=== PATIENT | female | born 1960 | race Caucasian/White ===

== ENCOUNTER 2016-04-14 10:34 | Day surgery (SDC) | payer OTHER ==
[2016-04-10 13:54] VITALS: BMI 16.6
[2016-04-14] MEDS ORDERED: MIDAZOLAM HCL 2 MG/2 ML SINGLE DOSE VIAL ONE (12:28)
[2016-04-14] MEDS ORDERED: ONDANSETRON 4 MG/2 ML VIAL IVPUSH PRN (12:32)
[2016-04-14] MEDS ORDERED: LACTATED RINGERS SOLUTION 1,000 ML IV SCH (12:45)
[2016-04-14] MEDS ORDERED: PROPOFOL 20 ML ONE (12:49)
[2016-04-14] MEDS ORDERED: SUCCINYLCHOLINE CHLORIDE 200 MG/10 ML VIAL ONE (12:49)
[2016-04-14] MEDS ORDERED: ROCURONIUM BROMIDE 50 MG/5 ML VIAL ONE (12:50)
--- NOTE | 2016-04-14 13:25 | PROC ---
Procedure Note Procedure: BRONCHOSCOPY NOTE After discussing the risks and benefits of the procedure, informed consent was obtained. Pt was placed under general anesthesia and intubated with a size 7.5 ETT by anesthesia. [employer] video bronchoscope was passed via the ETT and the airways were examined down to the subsegmental level. The brenton was sharp, there were no endobronchial lesions in the airways. There was a thick mucous plug in the distal trachea near the brenton which was washed off easily. There were also scattered areas of mucous throughout the airways which were also lavaged easily. Washing sent for cultures and cytology. Bronchoscope was then withdrawn and procedure terminated. Pre-op Dx: r/o tracheal mass Post-op Dx: mucous plugs Plan: - f/u cultures for routine, AFB and fungus - f/u cytology - outpt f/u with Dr. Sole Hopkins MD
[2016-04-14 14:45] VITALS: TEMP 97
[2016-04-14 16:22] VITALS: BP 121/70; PULSE 82
--- NOTE | 2016-04-16 15:51 | PATH ---
Cytology Non-Gynecological Report Patient Name: KARAN RUBIO [facility]. Rec. #: [id number] /Age/Gender: 1960 (Age: 56) / F Account: [id number] Location: [facility] Taken: 04/15/2016 Received: 04/15/2016 Reported: 04/16/2016 Physicians: Ceasar Hopkins M.D. Specimen(s) Received BRONCHIAL WASHING RIGHT UPPER LOBE Clinical History Tracheal mass Final Diagnosis LUNG, RIGHT UPPER LOBE, BRONCHIAL WASHINGS: SATISFACTORY FOR EVALUATION. NO MALIGNANT CELLS IDENTIFIED. REACTIVE BRONCHIAL CELLS, MACROPHAGES, MUCUS AND INFLAMMATORY CELLS. Comment: Special stains for acid-fast and fungal organisms are pending; results will be reported in an addendum. Electronically Signed Leon Dickens M.D. Addendum Reported: 04/17/2016 Addendum Diagnosis No acid-fast bacilli are identified AFB stain. No fungal organisms are identified GMS stain. Comment: Correlations with microbiology studies are suggested. Leon Dickens M.D. Gross Description Received is 50 cc of bloody fluid in 50% alcohol. One cytofunnel slide and one cell block are made.
== END 2016-04-14 15:40 | disposition home or self-care (01) ==
LOC: JOR 10:34 → JASU-SURG 10:34
PROVIDERS: ATTEND Internal Medicine
PROC: 0B928ZX Drainage of Carina, Via Natural or Artificial Opening Endoscopic, Diagnostic (ICD-10-PCS; 2016-04-14)
PROC: 0B918ZX Drainage of Trachea, Via Natural or Artificial Opening Endoscopic, Diagnostic (ICD-10-PCS; principal; 2016-04-14 12:00)
DX: D38.1 Neoplasm of uncertain behavior of trachea, bronchus and lung (principal)
CPT/HCPCS: 87070; 87102; 87116; 87186; 87205; 87206; 87210; 88108; 88305-TC; 88312-TC; 94760

== ENCOUNTER 2019-02-09 07:07 | Day surgery (SDC) | payer OTHER ==
[2019-02-08 09:11] VITALS: BMI 19.5
[2019-02-09] MEDS: TROPICAMIDE 1% OPHTH SOLN 15 ML BOTTLE ONE ×3 (07:40→07:50)
[2019-02-09] MEDS: CIPROFLOXACIN 0.3% EYE DROPS 5 ML BOTTLE ONE ×3 (07:40→07:50)
[2019-02-09] MEDS: CYCLOPENTOLATE 2% OPHTH SOLN 2 ML BOTTLE ONE ×3 (07:40→07:50)
[2019-02-09] MEDS: PHENYLEPHRINE 2.5% OPHTH SOLN 15 ML BOTTLE ONE ×3 (07:40→07:50)
[2019-02-09] MEDS ORDERED: MIDAZOLAM HCL 2 MG/2 ML SINGLE DOSE VIAL ONE (08:18)
[2019-02-09] MEDS ORDERED: TETRACAINE 0.5% OPHTH SOLN 2 ML BOTTLE ONE (08:40)
[2019-02-09] MEDS ORDERED: LIDOCAINE 1% P/F 10 MG/ML VIAL ONE (08:40)
[2019-02-09] MEDS ORDERED: NEO/POLYMYX B SULF/DEXAMETH OPHTHALMIC 5ML BOTTLE ONE (08:41)
[2019-02-09] MEDS ORDERED: BSS (NA/CA/MG/K) BALANCED SALT SOLUTION OPHTH SOLN 15 ML BOTTLE ONE (08:41)
[2019-02-09] MEDS ORDERED: CARBACHOL 0.01% INTRA-OCULAR 1.5 ML VIAL ONE (08:41)
[2019-02-09 08:51] VITALS: TEMP 97.5
--- NOTE | 2019-02-09 09:06 | OP ---
DATE OF OPERATION: 02/09/2019 OPERATIVE PROCEDURE: Lens phacoemulsification with posterior chamber intraocular lens placement, left eye. PREOPERATIVE DIAGNOSIS: Visually significant cataract of left eye. POSTOPERATIVE DIAGNOSIS: Visually significant cataract of left eye. SURGEON: Jose Antonio Tapia MD ANESTHESIA: MAC. PROCEDURE: The patient was brought to the operating room and placed under monitored anesthesia care by Anesthesia. A drop of tetracaine was then placed over the left eye. The patient was then prepped and draped in the usual sterile manner. A speculum was then placed over the left eye. The eye was then well irrigated with copious amounts of BSS (balanced salt solution). The operating microscope was then moved into position. A paracentesis was performed using a 15-degree blade. At this point 0.5 mL of 1% preservative-free lidocaine was injected into the anterior chamber. Amvisc Plus was then injected into the anterior chamber. A clear corneal incision was then formed using a 2.2-mm keratome. A capsulorrhexis was then performed in a continuous circular fashion beginning with a cystotome, completed with an Utratas forceps. Hydrodissection was then performed using BSS on a cannula. The phaco probe was then introduced through the corneal wound and the cataract was removed using the phaco chop technique. Approximately 3 seconds of absolute phaco time was used. The remaining cortex was then removed using irrigation and aspiration with an I/A probe. The capsule was then filled with regular Amvisc and the capsule was noted to be intact. A previously selected foldable posterior chamber intraocular lens was then injected into the capsule through the corneal wound using a lens injector. It was then dialed into position using a Sinskey hook. The Amvisc was then removed using irrigation and aspiration. Miostat was then injected through the paracentesis to constrict the pupil. The paracentesis and corneal wound were then hydrated and noted to be watertight. A drop of Maxitrol was then placed over the eye. The speculum was removed and clear shield was taped over the eye. The patient tolerated the procedure well and there were no surgical complications. The patient was asked to follow up in my office the next day. JOSE ANTONIO TAPIA M.D. [id number]
[2019-02-09 09:18] VITALS: BP 125/67; PULSE 60
== END 2019-02-09 09:20 | disposition home or self-care (01) ==
LOC: FASU 07:07
PROVIDERS: ATTEND Ophthalmology
PROC: 08RK3JZ Replacement of Left Lens with Synthetic Substitute, Percutaneous Approach (ICD-10-PCS; principal; 2019-02-09 08:28)
DX: H26.8 Other specified cataract (principal)

== ENCOUNTER 2019-03-02 09:51 | Day surgery (SDC) | payer OTHER ==
[2019-02-28 16:17] VITALS: BMI 19.5
[2019-03-02] MEDS: CIPROFLOXACIN 0.3% EYE DROPS 5 ML BOTTLE ONE ×3 (11:00→11:10)
[2019-03-02] MEDS: TROPICAMIDE 1% OPHTH SOLN 15 ML BOTTLE ONE ×3 (11:00→11:10)
[2019-03-02] MEDS: CYCLOPENTOLATE 2% OPHTH SOLN 2 ML BOTTLE ONE ×3 (11:00→11:10)
[2019-03-02] MEDS: PHENYLEPHRINE 2.5% OPHTH SOLN 15 ML BOTTLE ONE ×3 (11:00→11:10)
[2019-03-02] MEDS ORDERED: MIDAZOLAM HCL 2 MG/2 ML SINGLE DOSE VIAL ONE (12:00)
[2019-03-02] MEDS ORDERED: NEO/POLYMYX B SULF/DEXAMETH OPHTHALMIC 5ML BOTTLE ONE (12:01)
[2019-03-02] MEDS ORDERED: LIDOCAINE 1% P/F 10 MG/ML VIAL ONE (12:01)
[2019-03-02] MEDS ORDERED: BSS (NA/CA/MG/K) BALANCED SALT SOLUTION OPHTH SOLN 15 ML BOTTLE ONE (12:01)
[2019-03-02 12:50] VITALS: TEMP 98.6
[2019-03-02 13:25] VITALS: BP 120/83; PULSE 79
--- NOTE | 2019-03-02 14:48 | OP ---
DATE OF OPERATION: 03/02/2019 OPERATIVE PROCEDURE: Lens Phacoemulsification with Posterior Chamber Intraocular Lens Placement, Right Eye. PREOPERATIVE DIAGNOSIS: Visually Significant Cataract of Right Eye. POSTOPERATIVE DIAGNOSIS: Visually Significant Cataract of Right Eye. SURGEON: Jose Antonio Tapia MD ANESTHESIA: MAC ANESTHESIOLOGIST: PROCEDURE: The patient was brought to the operating room and placed under monitored anesthesia care by Anesthesia. A drop of Tetracaine was then placed over the right eye. The patient was then prepped and draped in the usual sterile manner. A speculum was then placed over the right eye. The eye was then well irrigated with copious amounts of BSS (balanced salt solution). The operating microscope was then moved into position. A paracentesis was performed using a 15 degree blade. At this point 0.5 mL of 1% preservative free-lidocaine was injected into the anterior chamber. Amvisc plus was then injected into the anterior chamber. A clear corneal incision was then formed using a 2.2 mm keratome. A capsulorrhexis was then performed in a continuous circular fashion beginning with a cystotome completed with an Utratas forceps. Hydrodissection was then performed using BSS on a cannula. The phaco probe was then introduced through the corneal wound and the cataract was removed using the phaco chop technique. Approximately 3 seconds of absolute phaco time was used. The remaining cortex was then removed using irrigation and aspiration with an I/A probe. The capsule was then filled with regular Amvisc and the capsule was noted to be intact. A previously selected foldable posterior chamber intraocular lens was then injected into the capsule through the corneal wound using a lens injector. It was then dialed into position using a Sinskey hook. The Amvisc was then removed using irrigation and aspiration. Miostat was then injected through the paracentesis to constrict the pupil. The paracentesis and corneal wound were then hydrated and noted to be watertight. A drop of Maxitrol was then placed over the eye. The speculum was removed and clear shield was taped over the eye. The patient tolerated the procedure well and there were no surgical complications. The patient was asked to follow up in my office the next day. JOSE ANTONIO TAPIA M.D. [id number]
== END 2019-03-02 13:10 | disposition home or self-care (01) ==
LOC: FASU 09:51
PROVIDERS: ATTEND Ophthalmology
PROC: 08RJ3JZ Replacement of Right Lens with Synthetic Substitute, Percutaneous Approach (ICD-10-PCS; principal; 2019-03-02 12:18)
DX: H26.8 Other specified cataract (principal)

== ENCOUNTER 2020-03-07 18:25 | Inpatient (IN) | payer OTHER ==
[2020-03-07 20:30] LABS: BASO % 1.7 % (0-2.0); EOS % 3.5 % (0-4.5); HEMATOCRIT 42.2 % (32.4-45.2); HEMOGLOBIN 14.1 GM/dl (10.7-15.3); LYMPH % 25.9 % (8-40); MCH 32.3 pg (25.7-33.7); MCHC 33.3 g/dl (32.0-36.0); MEAN CELL VOLUME 96.8 fl (80-96); MEAN PLT VOLUME 9.5 fl (7.5-11.1); MONO % 8.1 % (3.8-10.2); NEUT % 60.8 % (42.8-82.8); PLATELET COUNT 294 K/MM3 (134-434); RBC 4.35 M/mm3 (3.60-5.2); RDW 12.8 % (11.6-15.6); WHITE BLOOD COUNT 7.2 K/mm3 (4.0-10.8)
[2020-03-07 20:57] LABS: INR 1.13 (0.82-1.09); PROTHROMBIN TIME (PATIENT) 12.6 SEC (10.2-13.0)
[2020-03-07 21:03] LABS: ALBUMIN 3.4 g/dl (3.4-5.0); BILIRUBIN,TOTAL 0.5 mg/dl (0.2-1); CREATININE 0.9 mg/dl (0.55-1.3); POTASSIUM 3.5 mmol/L (3.5-5.1); TOT PROT 6.4 g/dl (6.4-8.2)
[2020-03-08] MEDS ORDERED: DEXTROSE 5%-0.45% SALINE 1,000 ML IV SCH (00:30)
[2020-03-08 08:26] LABS: BASO % 4.9 % (0-2.0); EOS % 4.4 % (0-4.5); HEMATOCRIT 39.1 % (32.4-45.2); HEMOGLOBIN 12.5 GM/dl (10.7-15.3); LYMPH % 42.5 % (8-40); MCH 30.8 pg (25.7-33.7); MCHC 31.9 g/dl (32.0-36.0); MEAN CELL VOLUME 96.5 fl (80-96); MEAN PLT VOLUME 8.9 fl (7.5-11.1); MONO % 9.8 % (3.8-10.2); NEUT % 38.4 % (42.8-82.8); PLATELET COUNT 256 K/MM3 (134-434); RBC 4.06 M/mm3 (3.60-5.2); RDW 12.5 % (11.6-15.6); WHITE BLOOD COUNT 6.8 K/mm3 (4.0-10.8)
[2020-03-08 08:31] LABS: ALBUMIN 3.1 g/dl (3.4-5.0); BILIRUBIN,TOTAL 0.4 mg/dl (0.2-1); CALCIUM 8.6 mg/dl (8.5-10); CREATININE 0.8 mg/dl (0.55-1.3); POTASSIUM 3.5 mmol/L (3.5-5.1); TOT PROT 5.7 g/dl (6.4-8.2)
[2020-03-08] MEDS ORDERED: D5-1/2NS+20 MEQ KCL - 20 MEQ/1,000 ML INFUS.BAG IV SCH (15:30)
[2020-03-08] MEDS ORDERED: PT OWN MED DRAWER 7, Y5N ONE (17:18)
[2020-03-09] MEDS ORDERED: PT OWN MED DRAWER 7, Y5N ONE ×2 (01:09→16:48)
[2020-03-09] MEDS: D5-1/2NS+20 MEQ KCL - 20 MEQ/1,000 ML INFUS.BAG IV SCH (12:42)
[2020-03-09] MEDS ORDERED: MELATONIN 5 MG TABLETS PO ONE (22:39)
[2020-03-10] MEDS ORDERED: PT OWN MED DRAWER 7, Y5N ONE ×2 (01:37→09:45)
[2020-03-10] MEDS: D5-1/2NS+20 MEQ KCL - 20 MEQ/1,000 ML INFUS.BAG IV SCH (04:26)
[2020-03-10 08:23] VITALS: PULSE 66; TEMP 97.7
[2020-03-10 08:26] LABS: BASO % 0.5 % (0-2.0); HEMATOCRIT 38.8 % (32.4-45.2); LYMPH % 37.3 % (8-40); MCHC 33.5 g/dl (32.0-36.0); MEAN CELL VOLUME 95.4 fl (80-96); MONO % 11.1 % (3.8-10.2); NEUT % 47.1 % (42.8-82.8); POTASSIUM 4.1 mmol/L (3.5-5.1); RBC 4.07 M/mm3 (3.60-5.2); RDW 13.1 % (11.6-15.6); WHITE BLOOD COUNT 5.7 K/mm3 (4.0-10.0)
[2020-03-10 08:28] LABS: CALCIUM 9.2 mg/dL (8.5-10.1)
[2020-03-10 08:29] LABS: CHLORIDE 108 mmol/L (98-107); SODIUM 142 mmol/L (136-145)
[2020-03-10 08:31] LABS: GLUCOSE,RANDOM 95 mg/dL (74-106); LIPASE 177 U/L (73-393)
[2020-03-10 08:32] LABS: CREATININE 0.8 mg/dL (0.55-1.3)
[2020-03-10 08:33] LABS: BILIRUBIN,TOTAL 0.5 mg/dL (0.2-1); CALCIUM 8.7 mg/dL (8.5-10.1); TOT PROT 5.9 g/dl (6.4-8.2)
[2020-03-10 08:34] LABS: ANION GAP 4 MMOL/L (8-16); CO2 31 mmol/L (21-32); CREATININE 0.8 mg/dL (0.55-1.3)
[2020-03-10 08:35] LABS: AMYLASE 54 U/L (25-115); IRON SERUM 81 ug/dL (50-175); LDH 120 U/L (84-246); TOTAL IRON BINDING CAPACITY 244 ug/dL (250-450)
[2020-03-10 12:06] VITALS: BMI 17.9
[2020-03-10 12:08] LABS: PLATELET ESTIMATE NORMAL
[2020-03-10 13:57] VITALS: BP 110/69
[2020-03-10 14:12] LABS: MEAN PLT VOLUME 9.7 fl (7.5-11.1); PLATELET COUNT 234 K/MM3 (134-434)
== END 2020-03-10 15:16 | disposition home or self-care (01) | DRG 246 ==
LOC: FER 18:25 → FM/S 03-08 01:28 → J6S 03-09 09:18
PROVIDERS: ADMIT Internal Medicine; ATTEND Internal Medicine
DX: K55.039 Acute (reversible) ischemia of large intestine, extent unspecified (principal); K80.20 Calculus of gallbladder without cholecystitis without obstruction; K86.89 Other specified diseases of pancreas; K83.8 Other specified diseases of biliary tract; K92.1 Melena; Z85.41 Personal history of malignant neoplasm of cervix uteri; Z98.1 Arthrodesis status; F17.210 Nicotine dependence, cigarettes, uncomplicated
CPT/HCPCS: 36415; 71045-TC-FY; 74177-TC; 80048; 80053; 82150; 82272; 82728; 83540; 83550; 83615; 83690; 85025; 85045; 85610; 86140; 86301; 86850; 86900; 86901; 93005; 99285-25; C9803; Q9967; U0003

== ENCOUNTER 2021-04-06 07:48 | Inpatient (IN) | payer OTHER ==
[2021-04-06] MEDS ORDERED: ACETAMINOPHEN 1000 MG/100 ML BAG IVPB ONE (08:21)
[2021-04-06] MEDS ORDERED: ACETAMINOPHEN INJECTION 100 ML IVPB ONE (08:24)
[2021-04-06 09:40] LABS: BASO % 0.4 % (0-2.0); HEMATOCRIT 40.1 % (32.4-45.2); HEMOGLOBIN 13.4 GM/dL (10.7-15.3); LYMPH % 10.5 % (8-40); MCHC 33.5 g/dl (32.0-36.0); MEAN CELL VOLUME 95.3 fl (80-96); MEAN PLT VOLUME 8.6 fl (7.5-11.1); MONO % 6.7 % (3.8-10.2); NEUT % 80.4 % (42.8-82.8); PLATELET COUNT 251 10^3/uL (134-434); RDW 13.4 % (11.6-15.6)
[2021-04-06 10:20] LABS: ALBUMIN 3.4 g/dl (3.4-5.0); BILIRUBIN,TOTAL 0.9 mg/dl (0.2-1); CALCIUM 8.9 mg/dl (8.5-10); CREATININE 1.1 mg/dl (0.55-1.3); TOT PROT 6.5 g/dl (6.4-8.2)
[2021-04-06] MEDS ORDERED: ALPRAZolam 1 MG TABLET PO PRN (13:56)
[2021-04-06] MEDS ORDERED: ACETAMINOPHEN 325 MG TABLET (FP) PO PRN (14:18)
[2021-04-06] MEDS ORDERED: LACTATED RINGERS SOLUTION 1,000 ML/1,000 ML INFUS.BAG IV SCH (14:30)
[2021-04-06] MEDS ORDERED: PIPERACILLIN/TAZOBACTAM 3.375 GM VIAL IVPB ONE ×2 (14:35→19:50)
[2021-04-06] MEDS: PIPERACILLIN/TAZOB 3.375 GM 3.375 GM in DEXTROSE 5%-WATER - 50 ML IVPB SCH ×2 (14:51→20:28)
[2021-04-06 17:57] VITALS: BMI 18.0
[2021-04-06] MEDS: ALBUTEROL SO4 HFA INHALER IH SCH ×2 (17:57→20:29)
[2021-04-06] MEDS ORDERED: DEXTROSE 5%-WATER - 50 ML IVPB ONE (19:51)
[2021-04-07] MEDS ORDERED: DEXTROSE 5%-WATER - 50 ML IVPB ONE ×3 (01:16→18:19)
[2021-04-07] MEDS ORDERED: PIPERACILLIN/TAZOBACTAM 3.375 GM VIAL IVPB ONE ×3 (01:16→18:19)
[2021-04-07] MEDS: ALBUTEROL SO4 HFA INHALER IH SCH ×4 (01:49→21:04)
[2021-04-07] MEDS: PIPERACILLIN/TAZOB 3.375 GM 3.375 GM in DEXTROSE 5%-WATER - 50 ML IVPB SCH ×3 (01:50→18:30)
[2021-04-07 09:10] LABS: ALBUMIN 2.6 g/dl (3.4-5.0); BILIRUBIN,TOTAL 1.7 mg/dl (0.2-1); CALCIUM 8.3 mg/dl (8.5-10); MAGNESIUM 1.7 mg/dL (1.8-2.4); TOT PROT 4.9 g/dl (6.4-8.2)
[2021-04-07] MEDS ORDERED: MAGNESIUM SULF 50% (8.12 MEQ/2 ML-1 GM VIAL) IVPB ONE (09:28)
[2021-04-07] MEDS ORDERED: DEXTROSE 5%-NORMAL SALINE 1,000 ML IV SCH (10:00)
[2021-04-07] MEDS: DEXTROSE 5%-NORMAL SALINE 1,000 ML IV SCH (10:36)
[2021-04-07 10:49] LABS: BASO % 0.4 % (0-2.0); EOS % 3.3 % (0-4.5); HEMATOCRIT 34.7 % (32.4-45.2); HEMOGLOBIN 11.2 GM/dL (10.7-15.3); LYMPH % 11.6 % (8-40); MCH 31.2 pg (25.7-33.7); MCHC 32.3 g/dl (32.0-36.0); MEAN CELL VOLUME 96.6 fl (80-96); MEAN PLT VOLUME 9.4 fl (7.5-11.1); MONO % 8.4 % (3.8-10.2); NEUT % 76.3 % (42.8-82.8); PLATELET COUNT 213 10^3/uL (134-434); RBC 3.59 M/mm3 (3.60-5.2); RDW 13.3 % (11.6-15.6); WHITE BLOOD COUNT 9.7 K/mm3 (4.0-10.0)
[2021-04-07] MEDS: NICOTINE 7 MG/24 HOURS TOPICAL PATCH TD SCH (11:16)
[2021-04-07] MEDS: CITALOPRAM HYDROBROMIDE 10 MG TABLET PO SCH (12:45)
[2021-04-07] MEDS: ENOXAPARIN NA (PORCINE) 40 MG/0.4 ML DISP.SYRIN SQ SCH (12:45)
[2021-04-07] MEDS: LACTOBACILLUS ACIDOPHILUS 1 TABLET PO SCH (12:45)
[2021-04-08] MEDS ORDERED: PIPERACILLIN/TAZOBACTAM 3.375 GM VIAL IVPB ONE ×3 (01:00→18:21)
[2021-04-08] MEDS ORDERED: DEXTROSE 5%-WATER - 50 ML IVPB ONE ×3 (01:00→18:21)
[2021-04-08] MEDS: ALBUTEROL SO4 HFA INHALER IH SCH ×4 (01:05→21:22)
[2021-04-08] MEDS: PIPERACILLIN/TAZOB 3.375 GM 3.375 GM in DEXTROSE 5%-WATER - 50 ML IVPB SCH ×3 (01:05→18:44)
[2021-04-08 08:02] LABS: ALBUMIN 2.5 g/dl (3.4-5.0); BILIRUBIN,TOTAL 0.8 mg/dl (0.2-1); CREATININE 0.9 mg/dl (0.55-1.3); MAGNESIUM 1.8 mg/dL (1.8-2.4)
[2021-04-08 09:32] LABS: BASO % 0.6 % (0-2.0); EOS % 9.2 % (0-4.5); HEMOGLOBIN 10.9 GM/dL (10.7-15.3); LYMPH % 29.4 % (8-40); MCH 32.1 pg (25.7-33.7); MEAN CELL VOLUME 94.3 fl (80-96); MEAN PLT VOLUME 8.3 fl (7.5-11.1); MONO % 12.6 % (3.8-10.2); NEUT % 48.2 % (42.8-82.8); PLATELET COUNT 215 10^3/uL (134-434); RBC 3.39 M/mm3 (3.60-5.2); RDW 12.9 % (11.6-15.6); WHITE BLOOD COUNT 4.4 K/mm3 (4.0-10.0)
[2021-04-08] MEDS: LACTOBACILLUS ACIDOPHILUS 1 TABLET PO SCH (10:24)
[2021-04-08] MEDS: ENOXAPARIN NA (PORCINE) 40 MG/0.4 ML DISP.SYRIN SQ SCH (10:24)
[2021-04-08] MEDS: CITALOPRAM HYDROBROMIDE 10 MG TABLET PO SCH (10:24)
[2021-04-08] MEDS: NICOTINE 7 MG/24 HOURS TOPICAL PATCH TD SCH (10:31)
[2021-04-08] MEDS: DEXTROSE 5%-NORMAL SALINE 1,000 ML IV SCH (18:45)
[2021-04-09] MEDS: PIPERACILLIN/TAZOB 3.375 GM 3.375 GM in DEXTROSE 5%-WATER - 50 ML IVPB SCH ×3 (02:38→17:49)
[2021-04-09] MEDS ORDERED: PIPERACILLIN/TAZOBACTAM 3.375 GM VIAL IVPB ONE ×3 (03:11→16:22)
[2021-04-09] MEDS ORDERED: DEXTROSE 5%-WATER - 50 ML IVPB ONE ×3 (03:11→16:22)
[2021-04-09] MEDS: ALBUTEROL SO4 HFA INHALER IH SCH ×4 (08:00→20:00)
[2021-04-09] MEDS: LACTOBACILLUS ACIDOPHILUS 1 TABLET PO SCH (09:44)
[2021-04-09] MEDS: CITALOPRAM HYDROBROMIDE 10 MG TABLET PO SCH (09:44)
[2021-04-09] MEDS: ENOXAPARIN NA (PORCINE) 40 MG/0.4 ML DISP.SYRIN SQ SCH (09:44)
[2021-04-09] MEDS: NICOTINE 7 MG/24 HOURS TOPICAL PATCH TD SCH (10:10)
[2021-04-10] MEDS: PIPERACILLIN/TAZOB 3.375 GM 3.375 GM in DEXTROSE 5%-WATER - 50 ML IVPB SCH ×2 (02:16→09:48)
[2021-04-10] MEDS ORDERED: DEXTROSE 5%-WATER - 50 ML IVPB ONE ×2 (03:09→09:42)
[2021-04-10] MEDS ORDERED: PIPERACILLIN/TAZOBACTAM 3.375 GM VIAL IVPB ONE ×2 (03:09→09:42)
[2021-04-10] MEDS: ALBUTEROL SO4 HFA INHALER IH SCH ×3 (06:54→13:11)
[2021-04-10 09:47] VITALS: BP 135/73; PULSE 64; TEMP 97.7
[2021-04-10] MEDS: LACTOBACILLUS ACIDOPHILUS 1 TABLET PO SCH (09:47)
[2021-04-10] MEDS: CITALOPRAM HYDROBROMIDE 10 MG TABLET PO SCH (09:48)
[2021-04-10] MEDS: ENOXAPARIN NA (PORCINE) 40 MG/0.4 ML DISP.SYRIN SQ SCH (09:48)
[2021-04-10] MEDS: NICOTINE 7 MG/24 HOURS TOPICAL PATCH TD SCH (09:49)
== END 2021-04-10 14:15 | disposition home or self-care (01) | DRG 395 ==
LOC: FER 07:48 → FM/S 17:06 → UNDODISIN 04-09 12:00
PROVIDERS: ADMIT Internal Medicine; ATTEND Nurse Practitioner Acute Care
DX: K55.9 Vascular disorder of intestine, unspecified (principal); F41.9 Anxiety disorder, unspecified; J44.9 Chronic obstructive pulmonary disease, unspecified
CPT/HCPCS: 36415; 74018-TC-FY; 74177-TC; 80053; 81003; 83735; 85025; 85651; 86140; 87086; 99285-25; C9803; J0131; Q9967; U0003; U0005

== ENCOUNTER 2021-04-24 20:00 | Observation (INO) | payer OTHER ==
[2021-04-24 20:15] VITALS: BMI 18.2
[2021-04-24] MEDS ORDERED: SODIUM CHLORIDE 0.9% 1000 ML INFUS.BAG IV ONE (20:43)
[2021-04-24 21:48] LABS: ALBUMIN 3.7 g/dl (3.4-5.0); BILIRUBIN,TOTAL 1.1 mg/dl (0.2-1); CALCIUM 9.6 mg/dl (8.5-10); CREATININE 0.8 mg/dl (0.55-1.3)
[2021-04-24 23:15] LABS: BASO % 0.5 % (0-2.0); EOS % 2.5 % (0-4.5); HEMATOCRIT 37.2 % (32.4-45.2); HEMOGLOBIN 12.6 GM/dL (10.7-15.3); LYMPH % 15.8 % (8-40); MCH 32.1 pg (25.7-33.7); MCHC 33.9 g/dl (32.0-36.0); MEAN CELL VOLUME 94.7 fl (80-96); MEAN PLT VOLUME 9.3 fl (7.5-11.1); MONO % 7.4 % (3.8-10.2); NEUT % 73.8 % (42.8-82.8); PLATELET COUNT 389 10^3/uL (134-434); RBC 3.93 M/mm3 (3.60-5.2); RDW 13.8 % (11.6-15.6); WHITE BLOOD COUNT 10.2 K/mm3 (4.0-10.0)
[2021-04-24 23:28] LABS: EPITHELIAL CELLS MODERATE /hpf; URINE MUCUS 2+
[2021-04-25] MEDS ORDERED: ACETAMINOPHEN 325 MG TABLET (FP) PO PRN (03:48)
[2021-04-25] MEDS ORDERED: PATIENT'S OWN MEDICATION (NON-FORMULARY) (Dextroamphetamine/Amphetamine [Adderall 10 Mg Ta PO PRN (04:11)
[2021-04-25] MEDS ORDERED: ALPRAZolam 1 MG TABLET PO PRN (04:11)
[2021-04-25] MEDS ORDERED: HEPARIN NA (PORCINE) 5,000 UNITS/ML 1ML VIAL SQ SCH (06:00)
[2021-04-25] MEDS: ALBUTEROL SO4 HFA INHALER IH SCH ×3 (09:40→16:12)
[2021-04-25] MEDS ORDERED: CITALOPRAM HYDROBROMIDE 10 MG TABLET PO SCH (10:00)
[2021-04-25 14:03] VITALS: BP 118/74; PULSE 88; TEMP 98.5
== END 2021-04-25 17:26 | disposition home or self-care (01) ==
LOC: FER 20:00 → INTOOBSV 04-25 06:04 → UNDOADMOB 04-25 06:04 → FM/S 04-25 06:04
PROVIDERS: ADMIT Hospitalist; ATTEND Nurse Practitioner Acute Care
PROC: 3E03329 Introduction of Other Anti-infective into Peripheral Vein, Percutaneous Approach (ICD-10-PCS; principal; 2021-04-25)
PROC: 3E0337Z Introduction of Electrolytic and Water Balance Substance into Peripheral Vein, Percutaneous Approach (ICD-10-PCS; 2021-04-25)
DX: R30.0 Dysuria (principal); A04.8 Other specified bacterial intestinal infections; Z85.41 Personal history of malignant neoplasm of cervix uteri; F41.9 Anxiety disorder, unspecified; K52.9 Noninfective gastroenteritis and colitis, unspecified; K80.20 Calculus of gallbladder without cholecystitis without obstruction; R82.81 Pyuria; R79.89 Other specified abnormal findings of blood chemistry; Z87.891 Personal history of nicotine dependence
CPT/HCPCS: 36415; 74177-TC; 80053; 81003; 81015; 83605; 83690; 85025; 87324; 87449; 93005; 93010; 96361; 96365; 99285-25; C9803; G0378; Q9967; U0003; U0005